=== PATIENT | male | born 1975 | race Caucasian/White ===

== ENCOUNTER 2023-09-19 14:06 | Outpatient (AMB) | payer OTHER, SELFPAY ==
--- NOTE | 2023-09-19 14:08 | MHC.OFFWIV ---
Intake Vital Signs 09/19/23 14:10 Height 5 ft 8 in Weight 257 lb BMI 39.1 BP 118/80 Blood Pressure Location Rt brachial Position Sitting Pulse 81 Pulse Source Pulse Oximeter Temp 97.9 F Temp Source Temporal Artery Scan Pulse Oximetry (%) 98 Oxygen Delivery Method Room Air Intake Visit Reasons: [employer] Pain and discomfort with bowel movements Intake Note: pt c/o painful bowel movements. Started a couple weeks ago. Pain and itching for 1-2 days after bowel movement Patient Tobacco Use Status: Former Tobacco user Allergies No Known Allergies Allergy (Verified 09/19/23 14:12) Do you need a note to return to daycare/school/sports/work: No HPI HPI Comments History of Present Illness Details 48 y/o male patient who presents to the walk in clinic with c/o rectal pain and itching for 4 days now. S/p Sleeve Gastrectomy. Denies constipation or diarrhea. Denies rectal bleeding. He has screening Colonoscopy scheduled for the end of the month. PFSH Social History Patient Tobacco Use Status: Former Tobacco user Review of Systems Const All systems reviewed & are unremarkable except as noted in HPI and below Physical Exam Vital Signs: Last Vital Signs Temp 97.9 F 09/19/23 14:10 Pulse 81 09/19/23 14:10 BP 118/80 09/19/23 14:10 Pulse Ox 98 09/19/23 14:10 Oxygen Delivery Method Room Air 09/19/23 14:10 BMI result Body Mass Index 39.1 Const General: comfortable and no acute distress Nutritional Appearance: obese morbidly obese Orientation/consciousness: patient oriented x3 Other: Deferred rectal examination today. Neuro General: patient oriented x3, gait normal and moves all extremities Psych Speech and movement: Normal speech and movement present Assessment & Plan Assessment & Plan (1) Rectal pain: Code(s): K62.89 - Other specified diseases of anus and rectum Plan: Probably hemorrhoids vs Polyps. Pt has scheduled Screening Colonoscopy @ the end of September Ordered Anusol Supp Increase Fiber in the diet Medications: New hydrocortisone acetate (Anusol-HC) 25 mg IN BID 12 ea 1RF K62.89 - Other specified diseases of anus and rectum Coding Level of Care Code New Pt Level 3 (64199) Diagnoses Rectal pain K62.89 Time Spent (min) 15
[2023-09-19 14:10] VITALS: BP 118/80; PULSE 81; TEMP 36.6; O2SAT 98; BMI 39.1
== END 2023-09-19 14:36 | disposition home or self-care (01) ==
PROVIDERS: PCP Internal Medicine; Visit Provider Nurse Practitioner Family
DX: K62.89 Other specified diseases of anus and rectum (principal)
CPT/HCPCS: 99203